=== PATIENT | female | born 1965 | race Hispanic/Latino ===

== ENCOUNTER 2018-05-05 04:20 | Emergency (ER) | payer BC ==
[2018-05-05 04:55] LABS: #Basophils 0.1 thou/uL (0.0-0.2); #Eosinphils 0.1 thou/uL (0.0-0.7); #Lymphocytes 1.3 thou/uL (1.20-3.40); #Monocytes 0.6 thou/uL (0.11-0.59); #Neutrophils 7.7 thou/uL (1.40-6.50); %Basophils 0.6 % (0.0-1.0); %Lymphocytes 13.2 % (21.0-51.0); %Monocytes 6.1 % (0.0-10.0); %Neutrophils 79.1 % (42.0-75.0); Hemoglobin 14.3 g/dL (12.0-16.0); Mean Corpuscular Hemoglobin 33.1 pg (27.0-31.0); Mean Corpuscular Volume 97.3 fL (78.0-98.0); Mean Platelet Volume 8.8 fL (7.4-10.4); Platelet Count 232 thou/uL (130-400); RBC Distribution Width 12.1 % (11.5-14.5); Red Blood Cell (RBC) Count 4.31 mill/uL (4.20-5.40); White Blood Cell (WBC) Count 9.7 thou/uL (4.8-10.8)
[2018-05-05] MEDS ORDERED: Morphine 4 MG/ML VIAL ONE (05:07)
[2018-05-05] MEDS ORDERED: Ondansetron PF 4 MG/2 ML Vial ONE (05:07)
[2018-05-05 05:12] LABS: Bilirubin Negative (Negative); Clarity CLOUDY (Clear); Glucose, Urine (Dipstick) Negative (Negative); Nitrite Negative (Negative); Specific Gravity, Urine 1.007 (1.002-1.036); Urobilinogen 0.2 mg/dL (0.2-1.0)
[2018-05-05 05:14] LABS: ALT (SGPT) 15 U/L (8-55); AST (SGOT) 21 U/L (5-34); Albumin 4.3 g/dL (3.5-5.0); Alkaline Phosphatase 118 U/L (40-150); Anion Gap 13 mmol/L (10-20); BUN (Urea Nitrogen) 30 mg/dL (9.8-20.1); Bilirubin, Total 0.5 mg/dL (0.2-1.2); Calc. Creatinine Clearance 0 mL/min (70-130); Calcium 9.3 mg/dL (7.8-10.44); Carbon Dioxide 24 mmol/L (22-29); Chloride 99 mmol/L (98-107); Estimated GFR-MDRD 61; Globulin 3.3 g/dL (2.4-3.5); Glucose 74 mg/dL (70-105); Lipase 74 U/L (8-78); Potassium 3.8 mmol/L (3.5-5.1); Protein, Total 7.6 g/dL (6.0-8.3); Sodium 132 mmol/L (136-145)
[2018-05-05 05:15] LABS: Hyaline Casts/LPF 4-6 HYALINE CAST LPF (0-3 Hyaline); Pathc Cast-AUWi Flag 0.58 (0-2.49); Squamous Epithelial None Seen HPF (0-3)
[2018-05-05 05:25] LABS: Yeast-AUWi Flag 224.9 (0-25.0)
[2018-05-05 05:39] LABS: Leukocyte Large (Negative)
[2018-05-05 05:40] LABS: Blood, Urine Large (Negative); Protein, Urine (Dipstick) 100 mg/dL (Neg-Trace)
[2018-05-05] MEDS ORDERED: cefTRIAXone\\ROCEPHIN 1 GM VIAL ONE (05:40)
[2018-05-05 05:41] LABS: Bacteria/HPF Rare-Few HPF (None Seen); RBC/HPF 21-50 HPF (0-3)
[2018-05-05 05:42] LABS: Yeast-All Forms None Seen HPF (None Seen)
--- NOTE | 2018-05-05 08:12 | CT ---
PRELIMINARY REPORT/[facility]/EMERGENTY AFTER-HOURS PROCEDURE CT Abdomen and Pelvis Without Contrast EXAM DATE/TIME: 05/05/2018 5:37 AM CLINICAL HISTORY: 52 years old, female; Pain; Abdominal pain; Generalized; Patient HX: [id number] presents to ed for urinary S X and back pain. PT reports urinary frequency beginning last week. PT also had pain in lower back, ri ght side, but denies pain that shoots down or in other places. PT visited her pcp who preformed a ua and vaginal swab but no findings. PT reports hematuria, dysuria and feeling weak. PT denies fever, ch ills. PT reports some nausea but not vomiting. Hx-has one kidney, no HX of kidney stones, no medical conditions, takes thyroid medication. TECHNIQUE: Axial computed tomography images of the abdomen and pelvis without contrast. Coronal reformatted images were created and reviewed. COMPARISON: No relevant prior studies available. FINDINGS: Lower thorax: 3 mm nodular density in the right and left lower lobes. ABDOMEN: Liver: Unremarkable. Gallbladder and bile ducts: Unremarkable. Pancreas: Unremarkable. Spleen: Unremarkable. Adrenals: Unremarkable. Kidneys and ureters: Absent left kidney. Left retroperitoneal surgical clips. Unremarkable right kidn ey. No significant hydronephrosis. No renal or ureteral stone identified. Stomach and bowel: Unremarkable. No obstruction. Appendix: No evidence of appendicitis. PELVIS: Bladder: Unremarkable. Reproductive: Hysterectomy. ABDOMEN and PELVIS: Intraperitoneal space: No free air. No significant fluid collection. Bones/joints: No acute fracture. No dislocation. Soft tissues: Unremarkable. Vasculature: Unremarkable. Lymph nodes: No enlarged lymph nodes. IMPRESSION: No acute findings. Thank you for allowing us to participate in the care of your patient. Dictated and Authenticated by: Bharat Perez MD 05/05/2018 6:43 AM Central Time ([place] & [place]) FINAL REPORT CT ABDOMEN AND PELVIS NONCONTRAST: Date: 05-05-18 Time: Performed on emergency basis at 0541 hours. History: Right flank pain. FINDINGS: I agree with the preliminary report by Dr. Perez from [facility]. Left kidney is surgically ab sent. Right renal collecting system, ureter, and urinary bladder are incompletely distended without s tone evident. Lack of contrast limits evaluation for other abnormalities. Code QA POS: [facility]
== END 2018-05-05 07:22 | disposition home or self-care (01) ==
LOC: ERS 04:20
DX: N12 Tubulo-interstitial nephritis, not specified as acute or chronic (principal); E03.9 Hypothyroidism, unspecified; Z79.899 Other long term (current) drug therapy
CPT/HCPCS: 36415; 74176; 80053; 81003; 81015; 83690; 85025; 87086; 96361; 96365; 96375; J0696; J2270; J2405

== ENCOUNTER 2018-07-17 14:07 | Outpatient (CLI) | payer BC ==
--- NOTE | 2018-07-17 15:07 | MMO ---
BILATERAL SCREENING MAMMOGRAM: Comparison: Prior mammograms from [place] cannot be obtained. Therefore, the current study will be fazal ated as a baseline mammogram. Technique: CC and MLO views of both breasts are submitted for interpretation. This study is interpret ed with the assistance of computer aided detection. FINDINGS: Breasts are composed of scattered fibroglandular tissue. Bilaterally, no dominant mass, architectural distortion or suspicious calcification. IMPRESSION: BIRADS category 1 - negative exam. RECOMMENDATION: Annual mammogram. POS: [facility]
== END 2018-07-17 14:08 | disposition home or self-care (01) ==
LOC: SCSMAMMO 14:07
PROVIDERS: ATTEND Family Medicine
DX: Z12.31 Encounter for screening mammogram for malignant neoplasm of breast (principal)
CPT/HCPCS: 77067

== ENCOUNTER 2019-08-20 14:30 | Outpatient (CLI) | payer BC ==
--- NOTE | 2019-08-20 15:47 | MRI ---
BRAIN AND PITUITARY GLAND MRI WITH AND WITHOUT CONTRAST: HISTORY: Increasing prolactin levels. COMPARISON: None. FINDINGS: Calvarium has a normal T1 marrow signal intensity. Midline brain parenchymal structures are unremark able. No parenchymal hemorrhage. No extraaxial hematoma. No parenchymal mass, mass effect, or midline colton ft. Brain volume is age appropriate. Cortical mccoy-white matter differentiation is preserved. No h ydrocephalus. No significant T2 or FLAIR white matter hyperintensities. Central arterial flow voids are maintained. Absent restricted diffusion. Adequate aeration of the paranasal sinuses and mastoid air cells. No pathologic enhancement of the b rain parenchyma. PITUITARY MRI: The pituitary stalk is midline. No mass effect upon the optic chiasm or prechiasmatic optic nerve. There is homogeneous signal intensity on the T1 weighted precontrast images. There is homogeneous si gnal intensity on the T2 weighted images. Postcontrast images demonstrate homogeneous enhancement. There is no evidence of a microadenoma. The pituitary size is within normal limits. No evidence of macroadenoma. Visualized 7th/8th and 5th cranial nerve complexes are appropriate in signal intensity. IMPRESSION: 1. Unremarkable pre- and postcontrast brain MRI. No acute intracranial process. Absent restricted diffusion. No pathologic enhancement of the brain parenchyma. 2. Appropriate signal intensity of the pituitary gland. No evidence of a pituitary microadenoma or pituitary macroadenoma. POS: [facility]
== END 2019-08-20 14:31 | disposition home or self-care (01) ==
LOC: SCSMRI 14:30
PROVIDERS: ATTEND Family Medicine
DX: E22.1 Hyperprolactinemia (principal)
CPT/HCPCS: 70553; 82565

== ENCOUNTER 2024-02-23 12:16 | Outpatient (CLI) | payer BC | END 2024-02-23 12:17 | disposition home or self-care (01) | LOC: SCSRAD 12:16 | PROVIDERS: ATTEND Internal Medicine Rheumatology | DX: M25.561 Pain in right knee (principal); M25.562 Pain in left knee; M17.0 Bilateral primary osteoarthritis of knee | CPT/HCPCS: 73565 ==

== ENCOUNTER 2024-05-04 12:37 | Outpatient (CLI) | payer BC | END 2024-05-04 12:38 | disposition home or self-care (01) | LOC: SCSRAD 12:37 | PROVIDERS: ATTEND Internal Medicine Rheumatology | DX: M79.7 Fibromyalgia (principal); M47.814 Spondylosis without myelopathy or radiculopathy, thoracic region | CPT/HCPCS: 72072 ==